=== PATIENT | female | born 1995 | race Two or more races ===

== ENCOUNTER 2024-12-12 09:26 | Emergency (ER) | payer MEDICAID, SELFPAY ==
[2024-12-12 09:33] VITALS: PULSE 76; RESP 18; TEMP 36.6; O2SAT 98
[2024-12-12 09:39] VITALS: PULSE 98; RESP 22; O2SAT 96
[2024-12-12 09:44] VITALS: BMI 22.3
--- NOTE | 2024-12-12 10:14 | PC.NURSE ---
Patient attempting to flee, pushing one to one sitter, combative, yelling, code ander called. Medical restraint order received from dr. Chandler, however, Once Security arrived to bedside, patient following commands and agrees to stay in room if we give her something to eat.
[2024-12-12] MEDS: HALOPERIDOL LACT INJ 5 MG/ML VIAL IM (10:19)
[2024-12-12] MEDS: LORazepam 2 MG/ML VIAL 1 MG IM (10:20)
--- NOTE | 2024-12-12 10:26 | PC.NURSE ---
No need for restraints, patient being cooperative, sandwich, chips and juice provided. 1:[address] for patient safety
[2024-12-12 10:31] LABS: Basophils # (Auto) 0.0 Thou/mm3 (0.0-0.2); Basophils % (Auto) 0 % (0-2.5); Eosinophils # (Auto) 0.1 Thou/mm3 (0.0-0.5); Eosinophils % (Auto) 2 % (0-10); Hematocrit 38.9 % (36.0-46.0); Hemoglobin 12.9 g/dL (12.0-16.0); Immature Granulocytes Auto 0.01 Thou/mm3 (0.00-0.00); Lymphocytes # (Auto) 2.2 Thou/mm3 (1.0-4.8); Lymphocytes % (Auto) 31 % (10-50); Mean Corpuscular HGB Conc 33.2 g/dl (31.0-37.0); Mean Corpuscular Hemoglobin 28.2 pg (25.0-35.0); Mean Corpuscular Volume 85 fL (80-100); Monocytes # (Auto) 0.4 Thou/mm3 (0.0-0.8); Monocytes % (Auto) 5 % (0-12); Neutrophils # (Auto) 4.5 Thou/mm3 (1.8-7.7); Neutrophils % (Auto) 62 % (37-80); Nucleated Red Blood Cell # 0.00 Thou/mm3 (0.00-0.00); Nucleated Red Blood Cell % 0 /100 WBC (0); Platelet Count 353 Thou/mm3 (140-440); RDW Standard Deviation 43.4 fL (36.4-46.3); Red Blood Count 4.57 Miln/mm3 (4.00-5.20); White Blood Count 7.2 Thou/mm3 (3.6-11.0)
[2024-12-12 10:40] LABS: HCG Qualitative,Urine Negative
[2024-12-12 10:55] LABS: Acetaminophen < 2.0 mcg/mL (10.0-20.0); Alcohol, Blood Medical < 3.0 mg/dL (0-10.0); Anion Gap 10 (7-16); BUN/Creatinine Ratio 19 Ratio (12-20); Blood Urea Nitrogen 15 mg/dL (9-23); Calcium 9.7 mg/dL (8.3-10.6); Carbon Dioxide 25.0 mMol/L (20.0-31.0); Chloride 108 mMol/L (98-107); Creatinine (Component) 0.8 mg/dL (0.6-1.3); Estimated Creatinine Clearance 88.0 mL/min (>60); Glucose 100 mg/dL (74-106); Osmolality,Calculated 285 (275-295); Potassium 4.4 mMol/L (3.4-5.1); Salicylate < 3.0 mg/dL; Sodium 143 mMol/L (136-145); eGFR > 60 See Note
--- NOTE | 2024-12-12 11:37 | PC.NURSE ---
Called pharmacy to bring rispiradol, not in our er chinedu
--- NOTE | 2024-12-12 11:44 | PC.NURSE ---
Held Risperidol, patient in deep sleep, ok to hold per Dr. Chandler.
--- NOTE | 2024-12-12 11:47 | EDNOTE_ITS ---
ED Psych RME/HPI General Chief Complaint: Psychiatric Symptoms Stated Complaint: MENTAL EVALUATION Time Seen by Provider: 12/12/24 09:40 Arrival date/time: 12/12/24 09:26 RME / HPI RME / HPI Narrative: 29 year old female presents to the ED BIBA from [facility] placed on a 5150 hold for gravely disabled. Per EMS, staff at [facility] reported the patient was set to be released today. However, were unable to safety plan with her and sta nasreen the patient was not making sense. In the ED, patient is not providing any additional history. Related Data Allergies Allergy/AdvReac Type Severity Reaction Status Date / Time NKA* Allergy Uncoded 09/19/18 20:30 Review of Systems Review of Systems Systems Reviewed: All systems reviewed, normal except as documented Past Medical History Past Medical History CARDIAC: Negative Congestive Heart Failure RESPIRATORY: Negative Chronic Obstructive Pulmonary Disease (COPD) GENITOURINARY: Negative Renal Disease ENDOCRINE: Negative Diabetes Mellitus Type 1 or Diabetes Mellitus Type 2 Social History SMOKING STATUS: Unknown if ever smoked ED Exam Narrative Physical exam: GENERAL APPEARANCE:? alert, well-developed, thin female, in no acute distress HEENT: normocephalic, atraumatic NECK: supple LUNGS: no respiratory distress, normal effort HEART: good peripheral perfusion ABDOMEN: non distended EXTREMITIES:? atraumatic NEUROLOGIC: awake; alert; cranial nerves II-XII grossly intact PSYCHIATRIC:? appropriate mood and affect SKIN: warm, dry, normal color; no rashes Course Quality Measures none Orders Category Date Time Status One-to-one observation NOW Care 12/12/24 19:07 Active Diet Regular Diet 12/12/24 Lunch Active Acetaminophen Stat Lab 12/12/24 10:20 Completed Alcohol, Blood Medical Stat Lab 12/12/24 10:20 Completed Basic Metabolic Panel Stat Lab 12/12/24 10:20 Completed CBC Stat Lab 12/12/24 10:20 Completed Drug Screen,Urine Stat Lab 12/12/24 10:28 Completed HCG Qualitative,Urine Stat Lab 12/12/24 10:28 Completed Salicylate Stat Lab 12/12/24 10:20 Completed Haloperidol Lactate [Haldol Inj] Med 12/12/24 10:10 Discontinued 5 mg IM X1 ONE LORazepam [Ativan Inj] Med 12/12/24 10:10 Discontinued 1 mg IM X1 ONE LORazepam [Ativan] Med 12/12/24 10:45 Active 1 mg PO BID risperiDONE [RisperDAL] Med 12/12/24 10:30 Active 1 mg PO BID Vital Signs Vital signs: Vital Signs Temperature 97.9 F 12/12/24 09:33 Pulse Rate 76 12/12/24 09:33 Respiratory Rate 18 12/12/24 09:33 Pulse Oximetry (%) 98 12/12/24 09:33 Oxygen Delivery Method Room Air 12/12/24 09:33 Pulse ox is 98% on room air which is adequate. Psych MDM Narrative MDM Narrative:: IChina, kathie scribing for and in the presence of Dr. Chandler. Patient has been medically cleared for mental health evaluation. 1800: During my watch, patient has remained stable. Care signed out to Dr. Pereira pending mental health evaluation. Patient data External records reviewed:: [facility] previous records Clinical information provided by:: EMS Social determinants that could affect healthcare access:: substance use Patient has the following chronic illnesses:: None reported How is presenting disease/condition affected by chronic disease/condition?: no chronic disease Evaluation data The following diagnostics were reviewed and interpreted by me:: lab results Lab and/or radiology exams considered but not ordered:: None Interpretation Summary: CBC and CMP are unremarkable UDS is positive for methamphetamine and marijuana Medications / Prescriptions Medications or Prescriptions considered but not ordered:: None Medication administrations:: Medication Administration History Lorazepam (Lorazepam 0.5 Mg Tablet) 1 mg PO BID ARYAN Stop: 12/17/24 10:44 Last Admin: 12/12/24 21:28 Dose: 1 mg Documented By: Admin: 12/12/24 11:35 Dose: Not Given Documented By: MARCELLE Non-Admin Reason: Duplicate Medication on eMAR Risperidone (Risperidone 1 Mg Tablet) 1 mg PO BID ARYAN Stop: 01/11/25 10:29 Last Admin: 12/12/24 21:28 Dose: 1 mg Documented By: Admin: 12/12/24 11:46 Dose: Not Given Documented By: MARCELLE Non-Admin Reason: held do to patient sleeping, see note Discontinued Medications Haloperidol Lactate (Haloperidol Lact Inj 5 Mg/Ml Vial) 5 mg IM X1 ONE Stop: 12/12/24 10:11 Last Admin: 12/12/24 10:19 Dose: 5 mg Documented By: MARCELLE Lorazepam (Lorazepam 2 Mg/Ml Vial) 1 mg IM X1 ONE Stop: 12/12/24 10:11 Last Admin: 12/12/24 10:20 Dose: 1 mg Documented By: MARCELLE Comments: rubi cruz witnessed administration of med, accidently threw away bottle in sharps container. See above Consultations Consultation(s) initiated? (list below): No Diagnosis Psych Differential Diagnosis: acute psychosis, bipolar disorder, drug-induced psychotic disorder and acute anxiety Most likely diagnosis given after review of the tests above:: Gravely disabeled Admission Indicated Admission indicated?: not indicated Explain why admission is indicated or not indicated:: Signed out pending final disposition. Admission Request Was there a request for admission?: No Disposition Plan Disposition Plan: other (specify) (Care signed out to Dr. Pereira. ) Discharge Plan Prescriptions/Referrals Referrals: Nakul Haro MD [Primary Care Provider, Family Practice] - In 1 week Problem List Clinical Impression: Chronic schizophrenia Patient/Caregiver Discharge Instructions Print Language: Sri Lankan
[2024-12-12 11:57] LABS: Amphetamine/Methamp Scrn,U Positive (Negative); Barbiturate Screen,Urine Negative (Negative); Benzodiazepines Screen,Urine Negative (Negative); Benzoylecgonine Screen, Ur Negative (Negative); Fentanyl Screen,Urine Negative (Negative); Opiate Screen,Urine Negative (Negative); THC Screen,Urine Positive (Negative)
[2024-12-12 12:15] VITALS: BP 94/55; PULSE 82; RESP 16; TEMP 36.9; O2SAT 97
--- NOTE | 2024-12-12 13:19 | PC.NURSE ---
Patient medically cleared.
--- NOTE | 2024-12-12 14:53 | PC.SS ---
Annika Rueda is 29-Year-old female brought in via ambulance from [facility] on a 5150 Hold placed by Yelena FERRER For gravely disabled. Hold indicates patient was responding to internal stimuli having audio hallucination and exhibiting facial gestures. Hold also indicates patient appeared disheveled dirty clothing, poor hygiene and displayed significant emotional dysregulation. 1423-Per [place] patient is medically cleared. SS-Yulissa and LOW HEEL BUILDER-Air Conditioning Supervisor, Radha Mckeon met with patient at bedside to conduct assessment, however patient was unable to participate in assessment. At this time, 10:14AM patient was given medication due to patient being combative; yelling at this time IV medication was given. Documentation indicates patient was given Lorazepam 1mg and Halopoeridol Lactate 5mg. 1430-SS contacted patient's sister, Radha in the attempt to obtain further information and next of kin. No other information was found in [facility]. ?SS explained role and reason for call; no information was disclosed on current visit. Patient?s sister appeared to understand role and cooperative in providing information. Sister reports that patient has been homeless for the past 10 Years, in and out of her home. Sister reports that no children reside under her care. Radha informed SS that patient has six children: Three with their paternal grandmother, one with the father and two in foster care, with one being up for adoption. Priscilla mentioned that patient has history drug use. Priscilla reported she is not aware if patient has any mental health history. Patient's sister Radha informed SS that patient was admitted in [facility] 2 weeks ago however was released. Radha requesting information, however SS informed her that at the time SS is not able to provide any further information. Patient's sister reported she was at work at the time and would be visiting patient after 8PM. ?Discussed case with Florin KEVIN. Reevaluation will be completed. Velvet RAINEScharge entry nurse was made aware.
[2024-12-12 16:06] VITALS: BP 115/74; PULSE 73; RESP 16; TEMP 36.7; O2SAT 95
--- NOTE | 2024-12-12 18:26 | PD.EDADDENDU ---
Emergency Room Addendum Addendum Narrative: 1800: Care assumed from Dr. Chandler, the previous shift emergency physician. Past medical, surgical, social and family history reviewed. Vitals and home medications reviewed. Results and treatment plan discussed. I will assume the care of the patient at this time and will follow the patient. Please refer to the emergency department record for history and examination from initial visit.
--- NOTE | 2024-12-13 04:46 | PC.NURSE ---
pt has been asleep since my arrival at 1900. woke her up for night meds. pt was pleasant and cooperative. Pt is on a 1 to 1 direct observation.
[2024-12-13 06:27] VITALS: BP 122/86; PULSE 76; RESP 17; TEMP 36.7; O2SAT 97
--- NOTE | 2024-12-13 08:57 | PC.CC ---
HERBERTH did a face to face assessment of PT. She is alert and oriented at this time, easily arousable. She states she has no SI/HI and feels safe leaving. She was able to articulate that she will be going to her mom's home upon DC. It is confirmed her sister will pick her up this morning and take her there. She has eaten since being here, and states her needs are met through her mom and sister. She was not forthcoming as to why she was unable to participate in a DC plan with the [facility] yesterday, but is able to do so today. At this time she will be discharged with community resources in the care of her sister. PT does not meet criteria for a psychiatric hold at this time, and it has been rescinded. - Isha Gastelum, HERBERTH [id number].
--- NOTE | 2024-12-13 09:00 | PC.SS ---
Addendum entered by Yulissa Rivera 12/13/24 09:56: SS met with patient and provided resources, as well as scheduled appointment with [facility] on December 16 at 8AM and December 18 at 9AM. Contact information and the address for [facility] provided. The patient verbalized understanding and agreeable to safety plan. SS attempted multiple times to make contact with patients SisterRadha however was unsuccessful. SS will set up transportation for patient to sisters home. SS updated Charge Nurse Rocio and Dr. Watts on safety plan disposition. Original Note: SS contacted patient's sister Radha Rueda, regarding thee patient's discharge. Radha confirmed that she could provide transportation; however, informed SS that it would need to be before 11:00 AM due to work commitment. SS assured her that transportation would be arranged before that time. SS informed Radha that the [facility] would [facility]. Radha expressed understanding and agreed to the plan. SS will follow up with her regarding transportation.
--- NOTE | 2024-12-13 09:49 | EDNOTE_ITS ---
Emergency Room Addendum Addendum Narrative: Care assumed from Dr. Pereira. Past medical, surgical, social and family history reviewed. Vitals and home medications reviewed. Results and treatment plan discussed. I will assume the care of the patient at this time and will follow the patient, pending psychiatric placement. Please refer to the emergency department record for history and examination from initial visit. Patient remained stable while under my care. AIR QUALITY MANAGER did a face to face assessment of PT. She is alert and oriented at this time, easily arousable. She states she has no SI/HI and feels safe leaving. She was able to articulate that she will be going to her mom's home upon DC. It is confirmed her sister will pick her up this morning and take her there. She has eaten since being here, and states her needs are met through her mom and sister. She was not forthcoming as to why she was unable to participate in a DC plan with the [facility] yesterday, but is able to do so today. At this time she will be discharged with community resources in the care of her sister. PT does not meet criteria for a psychiatric hold at this time, and it has been rescinded. Patient was discharged home in good condition. As above the hold was rescinded. The patient was much better today and had no SI, HI or PI. Patient has home to go to and is being transported via taxi.
== END 2024-12-13 10:07 | disposition home or self-care (01) ==
PROVIDERS: Emergency Provider Family Medicine; PCP Family Medicine
DX: F20.9 Schizophrenia, unspecified (principal)
CPT/HCPCS: 36415; 80048; 80307; 80320; 80329; 81025; 85025; 96127; 96372; 99285; J1630; J2060; A9270; G0480